=== PATIENT | male | born 1955 | race American Indian/Alaskan Native ===

== ENCOUNTER 2016-12-10 12:54 | Emergency (ER) | payer SELFPAY | END 2016-12-10 14:00 | disposition left against medical advice (07) | LOC: ED 12:54 | DX: R07.81 Pleurodynia (principal); V89.2XXA Person injured in unspecified motor-vehicle accident, traffic, initial encounter; Y93.89 Activity, other specified; Y99.9 Unspecified external cause status; Y92.410 Unspecified street and highway as the place of occurrence of the external cause; Z53.21 Procedure and treatment not carried out due to patient leaving prior to being seen by health care provider ==

== ENCOUNTER 2021-06-24 08:43 | Day surgery (SDC) | payer MEDICARE ==
[~2021-06-24 08:43] MED LIST: SODIUM CHLORIDE 0.9% 1000 ML 1,000 ML IV SCH
--- NOTE | 2021-06-24 10:27 | Anesthesia Consultation ---
Anesthesia Consult and Med Hx Date of service: 06/24/21 - Airway Anesthetic Teeth Evaluation: Chipped, Dentures (upper) ROM Head & Neck: Adequate Mental/Hyoid Distance: Adequate Mallampati Class: Class III Intubation Access Assessment: Possibly Difficult - Pre-Operative Health Status ASA Pre-Surgery Classification: ASA3 Proposed Anesthetic Plan: MAC - Pulmonary Hx Smoking: Yes (quit 10 yrs ago) Hx Respiratory Symptoms: No - Cardiovascular System Hx Hypertension: Yes Hx Heart Attack/AMI: No - Central Nervous System Hx Neuromuscular Disorder: Yes (spinal cord injury level C3-5; ambulatory with assistance) CVA: No - Endocrine Hx Renal Disease: No Hx Liver Disease: No Hx Non-Insulin Dependent Diabetes: Yes Hx Thyroid Disease: No - Additional Comments Anesthesia Medical History Comments: No hx anesthetic complications. Took percocet this morning.
--- NOTE | 2021-06-24 10:27 | Anesthesia Day of Surgery ---
Anesthesia Day of Surgery - Day of Surgery Patient Examined: Yes Patient H&P Reviewed: Yes Patient is NPO: Yes
[2021-06-24] MEDS ORDERED: propofoL 200 MG/20 ML VIAL IV ONE (10:58)
--- NOTE | 2021-06-24 11:27 | Short Stay Summary ---
Short Stay Documentation Date of service: 06/24/21 Narrative H&P: The patient presents for surveillance colonoscopy for hx of polyps. Last study was in 2013 - History Past Medical History: diabetes, hyperlipidemia, other (C3-5 spinal cord injury and paraplegia) Past Surgical History: Other (ankle surgery) Social history: no significant social history, lives with family - Allergies and Medications Current Medications: Allergies No Known Allergies Allergy (Unverified 12/07/14 20:05) Home Medications Medication Instructions Recorded Confirmed Last Taken Type Oxycodone HCl/Acetaminophen 1 tab PO Q6HR PRN 12/07/14 12/07/14 Unknown History [Percocet 10-325 mg] carisoprodoL [Soma] 350 mg PO QID 12/07/14 12/07/14 Unknown History lisinopriL [Lisinopril] 10 mg PO DAILY 12/07/14 12/07/14 Unknown History Ibuprofen [Motrin] 800 mg PO Q8H PRN #60 tablet 12/08/14 Unknown Rx Gabapentin 06/20/21 Unknown History Oxycodone HCl [roxiCODONE] 30 mg PO 06/20/21 Unknown History Valsartan [Diovan] 40 mg PO BID 06/20/21 06/20/21 Unknown History Active Medications Sodium Chloride (Nacl 0.9% 1000 Ml) 1,000 mls @ 50 mls/hr IV DIRECT FACUNDO Last Admin: 06/24/21 09:15 Dose: 0 mls Documented by: - Physical exam General appearance: no acute distress, well-nourished Integumentary: no rash, no growths, no abnormal pigmentation HEENT: Atraumatic, PERRLA, EOMI, Mucous membr. moist/pink Lungs: Clear to auscultation, Normal air movement Breasts: deferred Heart: Regular rate, Normal S1, Normal S2, No murmurs Gastrointestinal: normoactive bowel sounds, no tenderness, no distended, no masses, no guarding, no organomegaly Male Genitourinary: deferred Rectal Exam: normal exam-external/orifice, no mass Extremities: no ischemia, pulses intact, pulses symmetrical, No edema, normal temperature, normal color, Full ROM Neurological: Normal speech, Strength at 5/5 X4 ext, Normal tone, Sensation intact, Cranial nerves 3-12 NL, Other (non ambulatory) - Brief post op/procedure progress note Date of procedure: 06/24/21 Procedure: see dictation Findings: see dictation Estimated blood loss: none Pathology: list (diminutive ascending colon polyp) Specimen disposition: to lab Condition: stable - Disposition Condition at discharge: Good Disposition: 01 HOME / SELF CARE / HOMELESS - Discharge Diagnoses (1) History of colon polyps Status: Acute (2) Prediabetes Status: Acute (3) Spinal cord injury Status: Acute Short Stay Discharge Plan Activity: advance as tolerated Weight Bearing Status: Non-Weight Bearing Diet: diabetic Follow up with: GONZALO GRIFFIN MD [Primary Care Provider] - 7 Days
--- NOTE | 2021-06-24 11:30 | Operative Report ---
Operative Report Operative Report: Date of procedure: 06/24/2021 Preprocedure diagnosis: History of colon polyps. Last study in 2013 Post procedure diagnosis: Diminutive ascending colon polyp. Fair prep. Procedure: Colonoscopy to the cecum with cold forceps polypectomy. Endoscopist: Dr. Flannery Anesthesia: Monitored anesthesia care per anesthesia department Estimated blood loss: 0 Medications: Monitored anesthesia care. See separate report by anesthesia for details. After careful discussion of the nature and purpose of the procedure as well as details of the technique risks benefits and alternatives the patient gave consent. Please see recent history and physical from the office. The patient was placed in the left lateral decubitus position and medicated per anesthesia. A rectal exam was performed sphincter tone was normal there were no masses palpable. The [id number] scope was passed transanally and advanced under continuous direct vision without difficulty to the cecum. The colon was fair with some areas of thick liquid stool which could be aspirated clear in most places. The cecum was normal. The ascending colon revealed a diminutive polyp which was removed with a cold forceps. The transverse colon, descending colon, and sigmoid colon were normal. The rectum was normal on forward and retroflexed views. The procedure was well-tolerated overall and the patient was observed in recovery. Conclusions: Diminutive ascending colon polyp. Fair prep. Plan: Await pathology. Repeat colonoscopy in 1 to 2 years in light of prep. Signed electronically: Spencer Flannery M.D.
--- NOTE | 2021-06-24 12:44 | Post Anesthesia Evaluation ---
- Post Anesthesia Evaluation Patient Participated: Yes Airway Patent: Yes Stable Respiratory Function: Yes Nausea/Vomiting: No Temp > 96.8F: Yes Pain Manageable: Yes Adequeate Hydration: Yes Anesthesia Complications: No
[2021-06-24 16:53] VITALS: BP 118/70
== END 2021-06-24 08:44 | disposition home or self-care (01) ==
LOC: GIO 08:43 → EDSTATUS 14:15
PROVIDERS: ATTEND Internal Medicine Gastroenterology
DX: K59.04 Chronic idiopathic constipation (principal); D12.2 Benign neoplasm of ascending colon; K63.89 Other specified diseases of intestine; I10 Essential (primary) hypertension; E11.9 Type 2 diabetes mellitus without complications; M19.90 Unspecified osteoarthritis, unspecified site; F32.9 Major depressive disorder, single episode, unspecified; Z87.828 Personal history of other (healed) physical injury and trauma; Z86.010 Personal history of colon polyps; Z87.891 Personal history of nicotine dependence; Z79.899 Other long term (current) drug therapy; Z98.890 Other specified postprocedural states
CPT/HCPCS: 45380; 82962; 88305; J2704; J7030